=== PATIENT | male | born 1960 | race Caucasian/White ===

== ENCOUNTER → 2021-03-10 | Outpatient (CLI) | payer OTHER ==
--- NOTE | 2021-03-11 10:10 | XR ---
EXAMINATION TYPE: XR chest 2V DATE OF EXAM: 03/10/2021 COMPARISON: NONE TECHNIQUE: PA and lateral views submitted. HISTORY: Shortness of breath FINDINGS: The lungs are clear and there is no pneumothorax, pleural effusion, or focal pneumonia. Hyperinflat ion. Hypertrophic changes of the spine. No overt failure. Biapical pleural thickening. Heart size nor mal. Atherosclerotic change aorta. Arthropathy of the shoulders. IMPRESSION: 1. COPD correlate for chronic interstitial lung disease.
== END | disposition home or self-care (01) ==
LOC: RADXRYALE 16:04
PROVIDERS: ATTEND Physician Assistant
DX: J44.9 Chronic obstructive pulmonary disease, unspecified (principal)
CPT/HCPCS: 71046

== ENCOUNTER → 2022-01-28 | Outpatient (CLI) | payer BC ==
--- NOTE | 2022-01-28 13:08 | NM ---
EXAMINATION TYPE: NM thyroid image only DATE OF EXAM: 01/28/2022 COMPARISON: NONE HISTORY: Subclinical hyperthyroidism TECHNIQUE: After the intravenous administration of 10.29 mCi Tc 99m Sodium Pertechnetate. FINDINGS: Uptake of radiopharmaceutical is homogenous within the thyroid gland. Difficult to exclude increased trapping of the radiopharmaceutical. IMPRESSION: There is no focal cold nodule evident, additional findings above.
== END | disposition home or self-care (01) ==
LOC: RADNMMAIN 01-26 11:34
PROVIDERS: ATTEND Internal Medicine Endocrinology, Diabetes & Metabolism
DX: E05.90 Thyrotoxicosis, unspecified without thyrotoxic crisis or storm (principal)
CPT/HCPCS: 78013; A9512